=== PATIENT | female | born 1995 | race Two or more races ===

== ENCOUNTER 2023-12-23 12:49 | Emergency (ER) | payer OTHER ==
[~2023-12-23] VITALS: Ht 157.5 cm; Wt 62.3 kg
[2023-12-23 12:51] VITALS: BP 125/68; PULSE 66; RESP 18; TEMP 98.4; O2SAT 99
== END 2023-12-23 17:23 | disposition left against medical advice (07) ==
LOC: EMS 12:49
DX: R11.2 Nausea with vomiting, unspecified (principal); Z53.21 Procedure and treatment not carried out due to patient leaving prior to being seen by health care provider